=== PATIENT | female | born 1990 | race Caucasian/White ===

== ENCOUNTER 2021-02-22 18:59 | Emergency (ER) | payer OTHER ==
[~2021-02-22 18:59] MED LIST: FEOSOL325 MG PO; FLINTSTONES1 EACH PO; RANITIDINE HCL150 MG PO
[2021-02-22 19:51] LABS: HEMOGLOBIN 12.5 gm/dl (12.3-15.3); RED BLOOD COUNT 4.21 M/UL (4.00-5.10); WHITE BLOOD COUNT 5.2 K/UL (4.5-11.0)
[2021-02-22 20:19] LABS: BUN/CREATININE RATIO 14 (0-10)
[2021-02-22] MEDS ORDERED: CELEBREX100 MG PO (21:48)
== END 2021-02-22 22:10 | disposition home or self-care (01) ==
LOC: ER1 18:59
PROVIDERS: Emergency Medicine
DX: R07.81 Pleurodynia (principal); Z88.0 Allergy status to penicillin
CPT/HCPCS: 71045; 80053; 82550; 82553; 83874; 84484; 85025; 85379; 93005; 99284; Q9967

== ENCOUNTER → 2021-07-26 | Outpatient (CLI) | payer OTHER ==
[~2021-07-26] MED LIST changes: +CELEBREX100 MG PO
== END ==
LOC: US 09:30
DX: N64.4 Mastodynia (principal); R23.4 Changes in skin texture; N63.23 Unspecified lump in the left breast, lower outer quadrant
CPT/HCPCS: 76641-LT